=== PATIENT | female | born 2000 | race Two or more races ===

== ENCOUNTER 2021-02-02 21:59 | Emergency (ER) | payer OTHER ==
[~2021-02-02] VITALS: Ht 157.5 cm; Wt 52.2 kg
[2021-02-02] MEDS ORDERED: ZYRTEC (22:14)
[2021-02-02] MEDS ORDERED: GILTUSS TR TAB1 EACH (22:15)
[2021-02-03] MEDS ORDERED: PHENAGIL TABLE1 EACH PO (00:44)
[2021-02-03] MEDS ORDERED: ZYNCOF 20-400120 ML PO (00:50)
== END 2021-02-03 01:06 ==
LOC: EMR PED 21:59 → ER 21:59 → EMR PED 23:14
DX: J06.9 Acute upper respiratory infection, unspecified (principal); Z03.818 Encounter for observation for suspected exposure to other biological agents ruled out